=== PATIENT | female | born 1955 | race Caucasian/White ===

== ENCOUNTER → 2016-09-09 | Outpatient (CLI) | payer BC ==
[~2016-09-09] MED LIST: ALBUAER2 INH; ASPI81TA28 PO; CALC500C70 PO; CHOL100010 PO; CYAN10005 PO; MULT-506 PO; SIMV20TA2 PO
== END | disposition home or self-care (01) ==
LOC: C.PAPS 11:53
PROVIDERS: ATTEND Obstetrics & Gynecology
DX: Z01.419 Encounter for gynecological examination (general) (routine) without abnormal findings (principal)

== ENCOUNTER → 2017-05-13 | Outpatient (CLI) | payer BC ==
--- NOTE | 2017-05-16 07:41 | MAMMOGRAPHY REPORT ---
BILATERAL DIGITAL SCREENING MAMMOGRAM TOMOSYNTHESIS WITH CAD: 05/13/2017 CLINICAL HISTORY: Routine screening. Patient has no complaints. TECHNIQUE: Breast tomosynthesis in addition to standard 2D mammography was performed. Current study was also evaluated with a Computer Aided Detection (CAD) system. COMPARISON: Comparison is made to exams dated: 04/17/2015 mammogram, 04/16/2014 mammogram, 02/12/2013 [facility] mogram, 01/03/2012 mammogram, 01/26/2011 mammogram, and 07/16/2010 ultrasound - [facility]. BREAST COMPOSITION: The tissue of both breasts is heterogeneously dense, which may obscure small mas ses. FINDINGS: No suspicious masses, calcifications, or areas of architectural distortion are noted in ei ther breast. There has been no significant interval change compared to prior exams. Scattered bilater al benign-appearing calcifications are not significantly changed. Ovoid asymmetry in the right lower inner posterior breast is stable compared to multiple prior exams. Prominent bilateral axillary lym ph nodes are stable dating back to at least 2009. IMPRESSION: ACR BI-RADS CATEGORY 2: BENIGN There is no mammographic evidence of malignancy. A 1 year screening mammogram is recommended. The pa tient will receive written notification of the results. Approximately 10% of breast cancers are not detected with mammography. A negative mammographic report should not delay biopsy if a clinically suggestive mass is present. Lynn Greco M.D. /:05/13/2017 14:40:45 Physical Therapist Clinic Director: Claire Sharif, [facility] letter sent: Normal 1/2 BI-RADS Code: ACR BI-RADS Category 2: Benign
== END | disposition home or self-care (01) ==
LOC: C.MAMM 14:03
PROVIDERS: ATTEND Obstetrics & Gynecology
DX: Z12.31 Encounter for screening mammogram for malignant neoplasm of breast (principal)